=== PATIENT | male | born 1950 | race Caucasian/White ===

== ENCOUNTER 2017-10-05 13:44 | Emergency (ER) | payer OTHER ==
[2017-10-05 14:23] LABS: BASOPHILS % (AUTO) 0.8 %; EOSINOPHILS % (AUTO) 0.8 %; HGB - HEMOGLOBIN 15.8 g/dL (14.0-18.0); LYMPHOCYTES # (AUTO) 1.3 10^3/uL (1.5-3.5); LYMPHOCYTES % (AUTO) 21.9 %; MEAN CORPUSCULAR HEMOGLOBIN 32.9 pg (27.0-31.0); MEAN CORPUSCULAR HGB CONC 34.6 g/dL (32.0-36.0); MEAN CORPUSCULAR VOLUME 95.3 fL (80.0-94.0); MEAN PLATELET VOLUME 7.6 fL (7.4-11.4); MONOCYTES # (AUTO) 0.8 10^3/uL (0.0-1.0); MONOCYTES % (AUTO) 12.8 %; NEUTROPHILS # (AUTO) 3.9 10^3/uL (1.5-6.6); NEUTROPHILS % (AUTO) 63.7 %; PLT - PLATELET COUNT 195 10^3/uL (130-450); RED BLOOD COUNT 4.79 10^6/uL (4.70-6.10); RED CELL DISTRIBUTION WIDTH 13.2 % (12.0-15.0); WHITE BLOOD COUNT 6.1 x10^3/uL (4.8-10.8)
[2017-10-05 14:43] LABS: ALBUMIN 4.1 g/dL (3.2-5.5); ALBUMIN/GLOBULIN RATIO 1.5 (1.0-2.2); CALCIUM 9.1 mg/dL (8.5-10.3); CREATININE 1.2 mg/dL (0.6-1.2); TOTAL PROTEIN 6.9 g/dL (6.7-8.2)
--- NOTE | 2017-10-05 15:09 | ED Physician Documentation ---
History of Present Illness - Stated complaint Stated Complaint: DIZZY/IRREG HEART BEAT - Chief complaint Chief Complaint: Cardiac - History obtained from History obtained from: Patient, Family - History of Present Illness Timing: Today Pain level max: 0 Pain level now: 0 Improved by: nothing Worsened by: nothing - Additonal information Additional information: Patient is a 67 year old male who felt "lightheaded" while driving today. states she felt his pulse and it was irregular. Now feels normal. No chest pain. No shortness of breath. No palpitations. No syncope. Started on HCTZ 1 month ago for HTN. Has had panic attacks in the past and states this felt similar. No history of Afib. Entire episode lasted a few minutes. Review of Systems Ten Systems: 10 systems reviewed and negative Constitutional: denies: Fever, Chills Ears: denies: Ear pain Nose: denies: Rhinorrhea / runny nose, Congestion Respiratory: denies: Cough GI: denies: Nausea, Vomiting, Diarrhea Skin: denies: Rash Musculoskeletal: denies: Neck pain, Back pain Neurologic: denies: Headache PD PAST MEDICAL HISTORY - Past Medical History Past Medical History: Yes Cardiovascular: Hypertension Respiratory: None Endocrine/Autoimmune: None GI: None : None HEENT: None Psych: Post traumatic stress disorder Musculoskeletal: None Derm: None - Past Surgical History Past Surgical History: Yes General: Appendectomy Ortho: Arthroscopic surgery - Present Medications Home Medications: Ambulatory Orders Medication Instructions Recorded Confirmed Lorazepam [Ativan] 1 mg PO PRN PRN 07/01/15 04/29/16 Diclofenac Sodium [Diclofenac 100 mg PO 10/05/17 Sodium ER] Multivitamin [Multivitamins] 1 each PO 10/05/17 hydroCHLOROthiazide 10/05/17 [Hydrochlorothiazide] - Allergies Allergies/Adverse Reactions: Allergies Allergy/AdvReac Type Severity Reaction Status Date / Time No Known Drug Allergies Allergy Verified 10/05/17 13:56 - Social History Does the pt smoke?: No Smoking Status: Never smoker Does the pt drink ETOH?: Yes Does the pt have substance abuse?: No - Immunizations Immunizations are current?: Yes - POLST Patient has POLST: No PD ED PE NORMAL - Vitals Vital signs reviewed: Yes - General General: Alert and oriented X 3, No acute distress - HEENT HEENT: Moist mucous membranes - Neck Neck: Supple, no meningeal sign - Cardiac Cardiac: RRR, No murmur, Strong equal pulses - Respiratory Respiratory: No respiratory distress, Clear bilaterally - Abdomen Abdomen: Soft, Non tender, Non distended - Back Back: No spinal TTP - Derm Derm: Warm and dry - Extremities Extremities: No edema, Other - Neuro Neuro: Alert and oriented X 3 Results - Vitals Vitals: Vital Signs - 24 hr 10/05/17 10/05/17 13:54 15:48 Temperature 36.0 C L Heart Rate 84 82 Respiratory 17 18 Rate Blood Pressure 165/101 H 145/88 H O2 Saturation 99 96 Oxygen O2 Source Room air - EKG (time done) 1359 Rate: Rate (enter#) (82) Rhythm: NSR [place]: Normal Intervals: Normal [place] QRS: Normal Ischemia: Normal ST segments - Labs Labs: Laboratory Tests 10/05/17 10/05/17 10/05/17 14:08 14:08 14:08 WBC 6.1 RBC 4.79 Hgb 15.8 Hct 45.6 MCV 95.3 H MCH 32.9 H MCHC 34.6 RDW 13.2 Plt Count 195 MPV 7.6 Neut # 3.9 Lymph # 1.3 L [place] # 0.8 Eos # 0.0 Baso # 0.0 Absolute Nucleated RBC 0.00 Nucleated RBC % 0.0 Sodium 134 L Potassium 3.6 Chloride 98 L Carbon Dioxide 28 Anion Gap 8.0 BUN 18 Creatinine 1.2 Estimated GFR (MDRD) 61 L Glucose 96 Calcium 9.1 Total Bilirubin 1.0 AST 50 H ALT 52 Alkaline Phosphatase 72 Troponin I < 0.04 Total Protein 6.9 Albumin 4.1 Globulin 2.8 Albumin/Globulin Ratio 1.5 Lipase 50 - Rads (name of study) cxr Radiology: Prelim report reviewed, EMP read contemporaneously, See rad report ( normal) PD MEDICAL DECISION MAKING - ED course Complexity details: reviewed results, re-evaluated patient, considered differential, d/w patient, d/w family ED course: Patient is a 67-year-old gentleman who presents today with palpitations and lightheadedness. Irregular heartbeat while driving. This is happened to him several times in the past with no cause found. Has spent time in the hospital as well. Has an appointment with his doctor on Friday. No acute findings on laboratory testing, chest x-ray or EKG. No arrhythmias on telemetry, but does have occasional premature ventricular contractions. We will have him follow-up with his doctor for further care. No syncope today. Patient and family counseled regarding signs and symptoms for which I believe and urgent re- evaluation would be necessary. Patient with good understanding of and agreement to plan and is comfortable going home at this time This document was made in part using voice recognition software. While efforts are made to proofread this document, sound alike and grammatical errors may occur. Departure - Departure Disposition: 01 Home, Self Care Clinical Impression: Lightheaded, Palpitations Condition: Good Instructions: ED Palpitations Follow-Up: Dominick Rojas MD [Physician No Access] - Within 3 Days Comments: Make sure to follow-up with your doctor for further care. It is recommended that you have a Holter monitor or an event recorder to monitor your heartbeat during these episodes so we can evaluate what is going on. He did not have any significant abnormalities on your laboratory testing, EKG or chest x-ray at this time. Return if you worsen. Discharge Date/Time: 10/05/17 15:48
--- NOTE | 2017-10-05 15:32 | XRAY Report ---
EXAM: CHEST RADIOGRAPHY EXAM DATE: 10/05/2017 03:04 PM. CLINICAL HISTORY: Irregular heart rate, dizzy. COMPARISON: 04/29/2016. TECHNIQUE: 2 views. FINDINGS: Lungs/Pleura: No focal opacities evident. No pleural effusion. No pneumothorax. Normal volumes. Mediastinum: Heart and mediastinal contours are unremarkable. Other: No acute osseous abnormality. There are mild degenerative disk changes of the thoracic spine. IMPRESSION: No acute cardiopulmonary abnormality. [facility] Referring Provider Line: [phone] SITE ID: [id number]
[2017-10-05 15:48] VITALS: BP 145/88
== END 2017-10-05 15:48 | disposition home or self-care (01) ==
LOC: ED 13:44
DX: R42 Dizziness and giddiness (principal); I49.3 Ventricular premature depolarization; I10 Essential (primary) hypertension
CPT/HCPCS: 36415; 71046; 80053; 83690; 84484; 85025; 93005; 99283; 99284

== ENCOUNTER 2017-12-29 09:03 | Outpatient (CLI) | payer OTHER ==
[2017-12-29 10:02] LABS: BUN - BLOOD UREA NITROGEN 16 mg/dL (6-20); CALCIUM 8.7 mg/dL (8.5-10.3); CARBON DIOXIDE - CO2 25 mmol/L (21-32); CHLORIDE 104 mmol/L (101-111); CHOL/HDL RATIO 4.1 (<5.0); CHOLESTEROL 266 mg/dL; CREATININE 0.9 mg/dL (0.6-1.2); GFR - MDRD 84 (>89); GLUCOSE 117 mg/dL (70-100); HDL CHOLESTEROL 65 mg/dL; LDL CHOLESTEROL,CALCULATED 172 mg/dL; LDL/HDL RATIO 2.6 (<3.6); SODIUM 138 mmol/L (135-145); VLDL CHOLESTEROL 29 mg/dL
[2017-12-30 13:03] LABS: HEPATITIS C ANTIBODY NON-REACTIVE (NON-REACTIVE)
== END 2017-12-29 09:04 | disposition home or self-care (01) ==
LOC: LAB 09:03
PROVIDERS: ATTEND Nurse Practitioner Family
DX: Z00.00 Encounter for general adult medical examination without abnormal findings (principal); Z13.220 Encounter for screening for lipoid disorders; N52.9 Male erectile dysfunction, unspecified; I10 Essential (primary) hypertension
CPT/HCPCS: 36415; 80048; 80061; 83721; 84443; 86803

== ENCOUNTER 2019-05-27 09:51 | Outpatient (CLI) | payer MEDICARE ==
[2019-05-27 10:57] LABS: CHOL/HDL RATIO 2.6 (<5.0); CHOLESTEROL 195 mg/dL; HDL CHOLESTEROL 74 mg/dL; LDL CHOLESTEROL,CALCULATED 97 mg/dL; LDL/HDL RATIO 1.3 (<3.6); VLDL CHOLESTEROL 24 mg/dL
[2019-05-27 10:59] LABS: HB2 TOTAL 15.7 g/dL; HEMOGLOBIN A1C 0.59 g/dL; HEMOGLOBIN A1C % 5.6 % (4.6-6.2)
== END 2019-05-27 09:52 | disposition home or self-care (01) ==
LOC: LAB 09:51
PROVIDERS: ATTEND Nurse Practitioner Family
DX: E78.5 Hyperlipidemia, unspecified (principal); R73.01 Impaired fasting glucose
CPT/HCPCS: 36415; 80061; 83036; 83721

== ENCOUNTER 2019-12-31 13:37 | Outpatient (CLI) | payer MEDICARE | END 2019-12-31 13:38 | disposition home or self-care (01) | LOC: COV 13:37 | PROVIDERS: ATTEND Ophthalmology | DX: Z01.818 Encounter for other preprocedural examination (principal); H25.12 Age-related nuclear cataract, left eye; Z20.828 Contact with and (suspected) exposure to other viral communicable diseases ==

== ENCOUNTER 2020-01-06 06:45 | Day surgery (SDC) | payer MEDICARE ==
[~2020-01-06 06:45] MED LIST: CYCLOPENTOLATE 1% OPHTH DROPS 2 ML ONE; KETOROLAC 0.45% OPHTH DROPS ONE; PHENYLEPHRINE 2.5% OPHTH 2 ML DROPS ONE; PROPARACAINE 0.5% OPHTH DROPS 15 ML ONE
[2020-01-06] MEDS ORDERED: LACTATED RINGERS 500 ML IV ONE ×2 (06:47→08:15)
[2020-01-06] MEDS ORDERED: LACTATED RINGERS 1,000 ML IV ONE (06:47)
--- NOTE | 2020-01-06 07:25 | ANESTHESIA ---
Pre-Anesthesia VS, & Labs - Diagnosis L nuclear sclerotic cataract - Procedure extraction L cataract w/IOL Vital Signs: Temp Pulse Resp BP Pulse Ox 36.5 C 70 12 155/84 H 97 01/06/20 06:48 01/06/20 06:48 01/06/20 06:48 01/06/20 06:48 01/06/20 06:48 Height 5 ft 9 in Weight (kg) 87.4 kg Body Mass Index 29.5 - NPO >8 hours Home Medications and Allergies Home Medications: Ambulatory Orders Atorvastatin [Lipitor] 10 mg PO DAILY 01/03/20 Cholecalciferol [Vitamin D3] 25 mcg PO DAILY 01/03/20 Fluticasone [Flonase] 1 sprays CHARISSA DAILY 01/03/20 Glucos Sul 2Kcl/MSM/Chond/C/Mn [Glucosamine Chondroitin Cap] 1 each PO DAILY 01/03/20 Losartan/Hydrochlorothiazide [Losartan-Hctz 50-12.5 mg Tab] 1 each PO DAILY 01/03/20 Omeprazole 20 mg PO ONCE PRN 01/03/20 Oxymetazoline HCl [Afrin] 1 spray NS PRN PRN 01/03/20 Prazosin [Minipress] 1 mg PO QPM 01/03/20 Lorazepam [Ativan] 1 mg PO PRN PRN 07/01/15 Diclofenac Sodium [Diclofenac Sodium ER] 50 mg PO DAILY 10/05/17 Multivitamin [Multivitamins] 1 each PO DAILY 10/05/17 Atorvastatin [Lipitor] 10 mg PO DAILY 01/03/20 Cholecalciferol [Vitamin D3] 25 mcg PO DAILY 01/03/20 Fluticasone [Flonase] 1 sprays CHARISSA DAILY 01/03/20 Glucos Sul 2Kcl/MSM/Chond/C/Mn [Glucosamine Chondroitin Cap] 1 each PO DAILY 01/03/20 Losartan/Hydrochlorothiazide [Losartan-Hctz 50-12.5 mg Tab] 1 each PO DAILY 01/03/20 Omeprazole 20 mg PO ONCE PRN 01/03/20 Oxymetazoline HCl [Afrin] 1 spray NS PRN PRN 01/03/20 Prazosin [Minipress] 1 mg PO QPM 01/03/20 Allergies/Adverse Reactions: Allergies Allergy/AdvReac Type Severity Reaction Status Date / Time No Known Drug Allergies Allergy Verified 10/05/17 13:56 Anes History & Medical History - Anesthetic History Anesthesia Complications: reports: No previous complications Family history of Anesthesia Complications: Denies Family history of Malignant Hyperthermia: Denies - Medical History Cardiovascular: reports: Hypertension, High cholesterol Pulmonary: reports: None Gastrointestinal: reports: GERD, Ulcers Urinary: reports: Kidney stones Musculoskeletal: reports: Osteoarthritis Endocrine/Autoimmune: reports: None Blood Disorders: reports: None Skin: reports: Rosacea Smoking Status: Never smoker - Surgical History General: Appendectomy, Colonoscopy Urologic: Ureterolithotomy (stones) Orthopedic: Arthroscopic surgery Exam General: Alert, Oriented x3, Cooperative Dental: WNL Mouth Opening: Greater than 4 Fingerbreadths Neck Mobility: Normal Mallampati classification: II Thyromental Distance: greater than 6 cm Respiratory: Lungs clear, Normal breath sounds, No respiratory distress Cardiovascular: Regular rate Mental/Cognitive Status: Alert/Oriented X3, Normal for patient Cognitive Status: Within normal limits Plan Anesthesia Type: MAC Consent for Procedure(s) Verified and Reviewed: Yes Code Status: Attempt Resuscitation ASA classification: 2-Mild systemic disease Is this case an emergency?: No
[2020-01-06] MEDS ORDERED: fentaNYL 100 MCG/2 ML VIAL IVP PRN (07:26)
[2020-01-06] MEDS ORDERED: ONDANSETRON 4 MG/2 ML VIAL IVP PRN (07:26)
[2020-01-06] MEDS ORDERED: ePHEDrine 50 MG/ML VIAL IVP PRN (07:26)
[2020-01-06] MEDS ORDERED: NALOXONE 0.4 MG/ML VIAL IVP PRN (07:26)
[2020-01-06] MEDS ORDERED: METOCLOPRAMIDE 10 MG/2 ML VIAL IVP PRN (07:26)
[2020-01-06] MEDS ORDERED: MORPHINE 2 MG/ML CARPUJECT IVP PRN (07:26)
[2020-01-06] MEDS ORDERED: ATROPINE ABBOJECT 1 MG/10 ML SYRINGE IVP PRN (07:26)
[2020-01-06] MEDS ORDERED: HYDROmorphone 0.5 MG/0.5 ML SYRINGE IVP PRN (07:26)
[2020-01-06] MEDS ORDERED: VANCOMYCIN OPHTHALMI 8MG/0.8ML 8 MG/0.8 ML SYRINGE IO ONE ×2 (07:55→08:02)
[2020-01-06] MEDS ORDERED: TRIAMCIN/MOXIFLOX OPHTHALMIC 0.6 ML VIAL IO ONE ×2 (07:55→08:02)
[2020-01-06] MEDS ORDERED: BSS/LIDOCAINE/EPINEPHRINE 1 ML SYRINGE ONE (07:55)
[2020-01-06] MEDS ORDERED: EPINEPHrine 1 MG/ML AMP ONE (07:55)
[2020-01-06] MEDS ORDERED: TIMOLOL 0.5% OPHTH DROPS ONE (07:55)
[2020-01-06] MEDS ORDERED: BRIMONIDINE 0.2% OPHTH DROPS 5 ML ONE (07:55)
[2020-01-06] MEDS ORDERED: fentaNYL 100 MCG/2 ML VIAL IVP ONE (07:57)
[2020-01-06] MEDS ORDERED: MIDAZOLAM 2 MG/2 ML VIAL IVP ONE (07:57)
[2020-01-06] MEDS ORDERED: CHONDR SULF/HYALURONATE SYRINGE IO ONE (08:00)
[2020-01-06] MEDS ORDERED: EPINEPHrine 1 MG/ML AMP IR ONE (08:00)
[2020-01-06] MEDS ORDERED: TIMOLOL 0.5% OPHTH DROPS OPTH ONE (08:00)
[2020-01-06] MEDS ORDERED: LACTATED RINGERS 1,000 ML IV SCH (08:00)
[2020-01-06] MEDS ORDERED: BRIMONIDINE 0.2% OPHTH DROPS 5 ML OPTH ONE (08:00)
[2020-01-06] MEDS ORDERED: BSS/LIDOCAINE/EPINEPHRINE 1 ML SYRINGE IO ONE (08:01)
[2020-01-06] MEDS ORDERED: PROPARACAINE 0.5% OPHTH DROPS 15 ML EACHEYE ONE (08:02)
--- NOTE | 2020-01-06 08:30 | ANESTHESIA POST OP EVALUATION ---
Anesthesia Post Eval - Post Anesthesia Eval Vitals: Last Vital Signs Temp 36.7 C 01/06/20 08:15 Pulse 83 01/06/20 08:15 Resp 14 01/06/20 08:15 BP 126/98 H 01/06/20 08:15 Pulse Ox 98 01/06/20 08:15 CV Function Including HR & BP: positive: Stable Pain Control: positive: Satisfactory Nausea & Vomiting: positive: Negative Mental Status: positive: Baseline Respiratory Status: Airway Patent Hydration Status: Satisfactory Anesthesia Complications: positive: None
[2020-01-06 08:33] VITALS: BP 129/87
--- NOTE | 2020-01-06 09:33 | OPERATIVE REPORT ---
DATE OF SERVICE: 01/06/2020 Physician: Aidan Pascal MD PREOPERATIVE DIAGNOSIS: Visually significant cataract, left eye. This was his first cataract surger y. POSTOPERATIVE DIAGNOSIS: Visually significant cataract, left eye. This was his first cataract surge ry. PROCEDURE: Phacoemulsification with posterior chamber intraocular lens implant, left eye. SURGEON: Aidan Pascal MD ANESTHESIA: Monitored anesthesia care. COMPLICATIONS: None. OPERATIVE INDICATIONS: This is a 69-year-old man with progressive vision loss in the left eye due to 4+ nuclear sclerotic and 1+ cortical cataract. Best corrected visual acuity was 20/30, with glare t o 20/100 in the left eye. Indications for surgery were overall decrease in vision; difficulty seeing words, closed caption or game scores on TV; difficulty seeing street signs, difficulty driving in lo w light or at night, difficulty driving at night because of headlights from other vehicles, and diffi culty with glare or bright lights in any situation. He was consented at length concerning risks and benefits of cataract surgery, after which he expressed a desire to proceed with surgery. OPERATIVE PROCEDURE: Patient was taken into OR #3 and placed under monitored anesthesia care. A jose luis gical timeout was conducted confirming correct patient, correct procedure, and correct surgical site. He was given topical anesthesia, and then prepped and draped in the usual sterile fashion. The eye was entered at the 6 and 3 o'clock positions. Intracameral Shugarcaine was injected into the anteri or chamber, followed by Viscoat. A continuous-tear curvilinear capsulorrhexis was performed. The nu cleus was hydrodissected and phacoemulsified. The cortex was evacuated using automated infusion and aspiration. Provisc was injected in the capsular bag, and a 15.5 diopter intraocular lens was insert ed into the bag. Infusion and aspiration were used to evacuate the viscoelastic materials. The eye was inflated to physiologic pressure using balanced salt solution and found to be watertight. Approx imately 0.25 mL of a mixture of triamcinolone and moxifloxacin was injected transsclerally into the v itreous in the inferotemporal quadrant. An additional 0.55 mL of a mixture of triamcinolone, moxiflo xacin and vancomycin was injected subconjunctivally in the superior quadrant for infection and inflam mation prophylaxis. Wound integrity was checked with Weck-Mariposa sponges. Patient was taken from the O perating Room in good condition and given postoperative instructions. TD: 01/06/2020 08:24
== END 2020-01-06 06:46 | disposition home or self-care (01) ==
LOC: SDS 06:45
PROVIDERS: ATTEND Ophthalmology
DX: H25.12 Age-related nuclear cataract, left eye (principal); I10 Essential (primary) hypertension; E78.00 Pure hypercholesterolemia, unspecified; F43.10 Post-traumatic stress disorder, unspecified
CPT/HCPCS: 66984; A9270; J3490; J7120; V2632

== ENCOUNTER 2020-01-31 08:00 | Outpatient (CLI) | payer MEDICARE | END 2020-01-31 23:59 | disposition home or self-care (01) | LOC: COV 08:00 | PROVIDERS: ATTEND Ophthalmology | DX: Z01.818 Encounter for other preprocedural examination (principal); H25.11 Age-related nuclear cataract, right eye; Z20.828 Contact with and (suspected) exposure to other viral communicable diseases ==

== ENCOUNTER 2020-02-03 08:24 | Day surgery (SDC) | payer MEDICARE ==
[2020-02-03] MEDS ORDERED: LACTATED RINGERS 500 ML IV ONE (08:45)
--- NOTE | 2020-02-03 09:19 | ANESTHESIA ---
Pre-Anesthesia VS, & Labs - Diagnosis Right eye cataract - Procedure right eye cataract extraction with IOL implant Vital Signs: Temp Pulse Resp BP Pulse Ox 36.5 C 73 18 139/90 H 99 02/03/20 08:59 02/03/20 08:59 02/03/20 08:59 02/03/20 08:59 02/03/20 08:59 Height: 5 ft 9 in Weight (kg): 87.4 kg Body Mass Index: 28.4 BMI Classification: Overweight - NPO >8 hours Last Fluid Intake: 4 oz of black coffee Home Medications and Allergies Lorazepam [Ativan] 1 mg PO PRN PRN 07/01/15 Diclofenac Sodium [Diclofenac Sodium ER] 50 mg PO DAILY 10/05/17 Multivitamin [Multivitamins] 1 each PO DAILY 10/05/17 Atorvastatin [Lipitor] 10 mg PO DAILY 01/03/20 Cholecalciferol [Vitamin D3] 25 mcg PO DAILY 01/03/20 Fluticasone [Flonase] 1 sprays CHARISSA DAILY 01/03/20 Glucos Sul 2Kcl/MSM/Chond/C/Mn [Glucosamine Chondroitin Cap] 1 each PO DAILY 01/03/20 Losartan/Hydrochlorothiazide [Losartan-Hctz 50-12.5 mg Tab] 1 each PO DAILY 01/03/20 Omeprazole 20 mg PO ONCE PRN 01/03/20 Oxymetazoline HCl [Afrin] 1 spray NS PRN PRN 01/03/20 Prazosin [Minipress] 1 mg PO QPM 01/03/20 Allergies/Adverse Reactions: Allergies Allergy/AdvReac Type Severity Reaction Status Date / Time No Known Drug Allergies Allergy Verified 10/05/17 13:56 Anes History & Medical History - Anesthetic History Anesthesia Complications: reports: No previous complications - Medical History Cardiovascular: reports: Hypertension, High cholesterol Pulmonary: reports: None Gastrointestinal: reports: GERD, Ulcers Urinary: reports: Kidney stones Neuro: reports: None Musculoskeletal: reports: Osteoarthritis Endocrine/Autoimmune: reports: None Blood Disorders: reports: None Skin: reports: Rosacea Smoking Status: Never smoker Psychosocial: reports: No issues indicated - Surgical History General: Appendectomy, Colonoscopy Urologic: Ureterolithotomy (stones) Orthopedic: Arthroscopic surgery Exam General: Alert, Oriented x3, Cooperative, No acute distress Dental: WNL Mouth Openin Fingerbreadth Neck Mobility: Normal Mallampati classification: II Thyromental Distance: 4-6 cm Respiratory: Lungs clear, Normal breath sounds, No respiratory distress, No accessory muscle use Cardiovascular: Regular rate, Normal S1, Normal S2, No murmurs Mental/Cognitive Status: Alert/Oriented X3, Normal for patient Plan Anesthesia Type: MAC Consent for Procedure(s) Verified and Reviewed: Yes Code Status: Attempt Resuscitation ASA classification: 2-Mild systemic disease Is this case an emergency?: No
[2020-02-03] MEDS ORDERED: TRIAMCIN/MOXIFLOX OPHTHALMIC 0.6 ML VIAL IO ONE ×2 (10:04→10:24)
[2020-02-03] MEDS ORDERED: VANCOMYCIN OPHTHALMI 8MG/0.8ML 8 MG/0.8 ML SYRINGE IO ONE ×2 (10:05→10:25)
[2020-02-03] MEDS ORDERED: BRIMONIDINE 0.2% OPHTH DROPS 5 ML ONE (10:05)
[2020-02-03] MEDS ORDERED: TIMOLOL 0.5% OPHTH DROPS ONE (10:05)
[2020-02-03] MEDS ORDERED: EPINEPHrine 1 MG/ML AMP ONE (10:05)
[2020-02-03] MEDS ORDERED: BSS/LIDOCAINE/EPINEPHRINE 1 ML SYRINGE ONE (10:05)
[2020-02-03] MEDS ORDERED: fentaNYL 100 MCG/2 ML VIAL IVP ONE (10:12)
[2020-02-03] MEDS ORDERED: MIDAZOLAM 2 MG/2 ML VIAL IVP ONE (10:12)
[2020-02-03] MEDS ORDERED: PROPARACAINE 0.5% OPHTH DROPS 15 ML EACHEYE ONE (10:18)
[2020-02-03] MEDS ORDERED: BRIMONIDINE 0.2% OPHTH DROPS 5 ML OPTH ONE (10:21)
[2020-02-03] MEDS ORDERED: EPINEPHrine 1 MG/ML AMP IR ONE (10:22)
[2020-02-03] MEDS ORDERED: CHONDR SULF/HYALURONATE SYRINGE IO ONE (10:22)
[2020-02-03] MEDS ORDERED: TIMOLOL 0.5% OPHTH DROPS OPTH ONE (10:23)
[2020-02-03] MEDS ORDERED: BSS/LIDOCAINE/EPINEPHRINE 1 ML SYRINGE IO ONE (10:23)
[2020-02-03] MEDS ORDERED: DEXTROSE 5% 300 ML IV ONE (10:32)
[2020-02-03 10:57] VITALS: BP 143/86
--- NOTE | 2020-02-03 12:48 | OPERATIVE REPORT ---
DATE OF SERVICE: 02/03/2020 Physician: Aidan Pascal MD PREOPERATIVE DIAGNOSIS: Visually significant cataract, right eye. Cataract surgery was performed on the left eye on . POSTOPERATIVE DIAGNOSIS: Visually significant cataract, right eye. Cataract surgery was performed o n the left eye on 01/06/2020. PROCEDURE: Phacoemulsification with posterior chamber intraocular lens implant, right eye. SURGEON: Aidan Pascal MD ANESTHESIA: Monitored anesthesia care. COMPLICATIONS: None. OPERATIVE INDICATIONS: This is a 69-year-old man with progressive vision loss in the right eye due t o 2+ nuclear sclerotic and trace cortical cataract. Best corrected visual acuity was 20/20, with gla re to 20/40 in the right eye. Indications for surgery are overall decrease in vision, difficulty see ing street signs, difficulty driving in low light or at night, difficulty driving at night because of headlights from other vehicles, difficulty with glare or bright lights in any situation, and decreas ed acuity with firearms. He was consented at length concerning risks and benefits of cataract surger y, after which he expressed a desire to proceed with surgery. OPERATIVE PROCEDURE: Patient was taken to OR #3 and placed under monitored anesthesia care. Surgica l timeout was conducted confirming correct patient, correct procedure, and correct surgical site. He was given topical anesthesia, and prepped and draped in the usual sterile fashion. The eye was ente red at the 12, and 9 o'clock positions. Intracameral Shugarcaine was injected into the anterior dexter alyson, followed by Viscoat. A continuous-tear curvilinear capsulorrhexis was performed. The nucleus w as hydrodissected and phacoemulsified. The cortex was evacuated using automated infusion and aspirat ion. Provisc was injected in the capsular bag, and a 16.0 diopter intraocular lens was inserted into the bag. Infusion and aspiration was used to evacuate the viscoelastic materials. The eye was infl ated to physiologic pressure using balanced salt solution and found to be watertight. Approximately 0.25 mL of a mixture of triamcinolone and moxifloxacin was injected transsclerally into the vitreous in the inferotemporal quadrant. An additional 0.55 mL of a mixture of triamcinolone, moxifloxacin an d vancomycin was injected subconjunctivally in the superior quadrant for infection and inflammation p rophylaxis. Wound integrity was checked with Weck-Mariposa sponges. Patient was taken from the Operating Room in good condition and given postoperative instructions. TD: 02/03/2020 10:43
--- NOTE | 2020-02-03 13:27 | ANESTHESIA POST OP EVALUATION ---
Anesthesia Post Eval - Post Anesthesia Eval Vitals: Last Vital Signs Temp 36.9 C 02/03/20 10:33 Pulse 76 02/03/20 10:50 Resp 18 02/03/20 10:50 BP 143/86 H 02/03/20 10:50 Pulse Ox 97 02/03/20 10:50 CV Function Including HR & BP: positive: Stable Pain Control: positive: Satisfactory Nausea & Vomiting: positive: Negative Mental Status: positive: Patient Participates Respiratory Status: Airway Patent Hydration Status: Satisfactory Anesthesia Complications: positive: None
== END 2020-02-03 08:25 | disposition home or self-care (01) ==
LOC: SDS 08:24
PROVIDERS: ATTEND Ophthalmology
DX: H25.11 Age-related nuclear cataract, right eye (principal); I10 Essential (primary) hypertension; Z98.42 Cataract extraction status, left eye
CPT/HCPCS: 66984; A9270; J3490; J7120; V2632

== ENCOUNTER 2020-03-06 15:20 | Outpatient (CLI) | payer MEDICARE | END 2020-03-06 15:21 | disposition home or self-care (01) | LOC: COV 15:20 | PROVIDERS: ATTEND Family Medicine | DX: Z20.828 Contact with and (suspected) exposure to other viral communicable diseases (principal) ==

== ENCOUNTER 2020-04-17 08:44 | Outpatient (CLI) | payer MEDICARE ==
[2020-04-17 09:25] LABS: ALBUMIN 3.9 g/dL (3.2-5.5); ALBUMIN/GLOBULIN RATIO 1.4 (1.0-2.2); ALKALINE PHOSPHATASE 64 IU/L (42-121); ALT ALANINE AMINOTRANSFERASE 38 IU/L (10-60); AST ASPARTATE AMINOTRANSFERASE 36 IU/L (10-42); BUN - BLOOD UREA NITROGEN 13 mg/dL (6-20); CALCIUM 8.8 mg/dL (8.5-10.3); CARBON DIOXIDE - CO2 26 mmol/L (21-32); CHLORIDE 101 mmol/L (101-111); CHOL/HDL RATIO 2.7 (<5.0); CHOLESTEROL 204 mg/dL; CREATININE 0.9 mg/dL (0.6-1.2); GLUCOSE 100 mg/dL (70-100); HDL CHOLESTEROL 75 mg/dL; LDL CHOLESTEROL,CALCULATED 94 mg/dL; LDL/HDL RATIO 1.3 (<3.6); SODIUM 139 mmol/L (135-145); TOTAL PROTEIN 6.6 g/dL (6.7-8.2); VLDL CHOLESTEROL 35 mg/dL
== END 2020-04-17 08:45 | disposition home or self-care (01) ==
LOC: LAB 08:44
PROVIDERS: ATTEND Nurse Practitioner Family
DX: I10 Essential (primary) hypertension (principal); E78.5 Hyperlipidemia, unspecified
CPT/HCPCS: 36415; 80053; 80061; 83721

== ENCOUNTER 2020-09-01 15:59 | Emergency (ER) | payer MEDICARE, OTHER ==
--- OUTSIDE RECORDS SUMMARY | 2020-09-01 16:12 | EXTERNAL MEDICAL SUMMARY RPT | Continuity of Care Document ---
:1950 Demographics Phone Unavailable Preferred Language Unknown Marital Status Unknown Uatsdin Affiliation Unknown Race Unknown Ethnic Group Unknown Author Organization [facility] Address [address] [phone] Phone Social History date description facility [phone]
[2020-09-01] MEDS ORDERED: DEXAMETHASONE 10 MG/ML VIAL IM STA (16:29)
--- NOTE | 2020-09-01 16:31 | ED Physician Documentation ---
PD HPI UPPER EXT INJURY - Stated complaint Stated Complaint: LT ARM PX - Chief complaint Chief Complaint: Ext Problem - History obtained from History obtained from: Patient - Additonal information Additional information: This is a generally pretty healthy 70-year-old gentleman who after heavy day of yard work developed gradual onset left arm pain 4 days ago. He was seen at urgent care and given prescription for hydrocodone and diagnosed with lateral epicondylitis. He does not really like taking hydrocodone and really has not taken much. His pain is gotten worse and is now "worse than the kidney stone which she has had before." He denies chest pain, neck pain. He does note numbness in the left hand which seems to be worsening as well. There was no specific injury, no fall etc. He is never had this before. Review of Systems Ten Systems: 10 systems reviewed and negative Constitutional: reports: Reviewed and negative Eyes: reports: Reviewed and negative Ears: reports: Reviewed and negative Throat: reports: Reviewed and negative PD PAST MEDICAL HISTORY - Past Medical History Cardiovascular: Hypertension Respiratory: None Neuro: None Endocrine/Autoimmune: None GI: None : None HEENT: None Psych: Post traumatic stress disorder Musculoskeletal: None Derm: None - Past Surgical History Past Surgical History: Yes General: Appendectomy Ortho: Arthroscopic surgery - Present Medications Home Medications: Ambulatory Orders Medication Instructions Recorded Confirmed Lorazepam [Ativan] 1 mg PO PRN PRN 07/01/15 09/01/20 Diclofenac Sodium [Diclofenac 50 mg PO DAILY 10/05/17 09/01/20 Sodium ER] Multivitamin [Multivitamins] 1 each PO DAILY 10/05/17 09/01/20 Atorvastatin [Lipitor] 10 mg PO DAILY 01/03/20 09/01/20 Cholecalciferol [Vitamin D3] 25 mcg PO DAILY 01/03/20 09/01/20 Fluticasone [Flonase] 1 sprays CHARISSA DAILY 01/03/20 09/01/20 Glucos Sul 2Kcl/MSM/Chond/C/Mn 1 each PO DAILY 01/03/20 09/01/20 [Glucosamine Chondroitin Cap] Losartan/Hydrochlorothiazide 1 each PO DAILY 01/03/20 09/01/20 [Losartan-Hctz 50-12.5 mg Tab] Omeprazole 20 mg PO ONCE PRN 01/03/20 09/01/20 Oxymetazoline HCl [Afrin] 1 spray NS PRN PRN 01/03/20 09/01/20 Prazosin [Minipress] 1 mg PO QPM 01/03/20 09/01/20 predniSONE [Deltasone] 20 mg PO [id number] #21 tab 09/01/20 - Allergies Allergies/Adverse Reactions: Allergies Allergy/AdvReac Type Severity Reaction Status Date / Time No Known Drug Allergies Allergy Verified 09/01/20 16:17 - Social History Does the pt smoke?: No Smoking Status: Never smoker Does the pt drink ETOH?: Yes Does the pt have substance abuse?: No - Immunizations Immunizations are current?: Yes - POLST Patient has POLST: No PD ED PE NORMAL - Vitals Vital signs reviewed: Yes - General General: Alert and oriented X 3, No acute distress - HEENT HEENT: PERRL, EOMI - Neck Neck: Supple, no meningeal sign, No bony TTP - Cardiac Cardiac: RRR, No murmur - Respiratory Respiratory: No respiratory distress, Clear bilaterally - Abdomen Abdomen: Normal bowel sounds, Soft, Non tender - Back Back: No CVA TTP, No spinal TTP - Derm Derm: Normal color, Warm and dry - Extremities Extremities: Other (Excellent perfusion of the left hand with bounding radial pulses. Mild numbness throughout the left hand not particularly in a dermatomal pattern. Kind of diffusely tender about the proximal forearm and elbow. More on the medial side I think than the lateral side. No neck tenderness. ) - Neuro Neuro: Alert and oriented X 3, Normal speech Results - Vitals Vitals: Vital Signs - 24 hr 09/01/20 16:11 Temperature 36.8 C Heart Rate 93 Respiratory 16 Rate Blood Pressure 163/81 H O2 Saturation 95 Oxygen O2 Source Room air - EKG (time done) 1637 Rate: Rate (enter#) (90) Rhythm: NSR [place]: Normal Intervals: Normal [place] QRS: Normal Ischemia: Non specific changes Computer interpretation: Agree with computer - Labs Labs: Laboratory Tests 09/01/20 09/01/20 16:40 16:40 WBC 6.5 RBC 4.85 Hgb 15.8 Hct 46.6 MCV 96.1 H MCH 32.6 H MCHC 33.9 RDW 11.9 L Plt Count 229 MPV 8.9 Neut # (Auto) 4.2 Lymph # (Auto) 1.4 L [place] # (Auto) 0.7 Eos # (Auto) 0.1 Baso # (Auto) 0.1 Absolute Nucleated RBC 0.00 Nucleated RBC % 0.0 Sodium 139 Potassium 3.5 Chloride 104 Carbon Dioxide 25 Anion Gap 10.0 BUN 19 Creatinine 0.9 Estimated GFR (MDRD) 84 L Glucose 118 H Calcium 9.4 - Rads (name of study) Xrays of the left elbow, forearm, and cervical spine Radiology: EMP read contemporaneously PD MEDICAL DECISION MAKING - ED course ED course: Gentleman with pain of the left upper extremity associate with numbness of the left upper extremity. He actually had excellent relief with a shot of Decadron here. He like to not take narcotics even though the pain is severe. There is no sign of infection. Could be cervical radiculopathy? Noting numbness in the left hand. No evidence of vascular issue. Departure - Departure Disposition: 01 Home, Self Care Clinical Impression: Pain in extremity Qualifiers: Extremity pain location: upper extremity Laterality: left Qualified Code(s): M79.602 - Pain in left arm Condition: Good Record reviewed to determine appropriate education?: Yes Instructions: ED Acute Pain [facility] Prescriptions: predniSONE [Deltasone] 20 mg PO [id number] #21 tab Comments: As discussed, my best guess is that you have a pinched nerve in your neck, return for new or worsening symptoms and follow-up with your primary care physician. Thankfully we already know the steroids are helping.
[2020-09-01 16:50] LABS: BASOPHILS # (AUTO) 0.1 10^3/uL (0.0-0.1); BASOPHILS % (AUTO) 1.2 %; EOSINOPHILS # (AUTO) 0.1 10^3/uL (0.0-0.7); EOSINOPHILS % (AUTO) 1.5 %; HCT - HEMATOCRIT 46.6 % (42.0-52.0); HGB - HEMOGLOBIN 15.8 g/dL (14.0-18.0); LYMPHOCYTES # (AUTO) 1.4 10^3/uL (1.5-3.5); LYMPHOCYTES % (AUTO) 21.7 %; MEAN CORPUSCULAR HEMOGLOBIN 32.6 pg (27.0-31.0); MEAN CORPUSCULAR HGB CONC 33.9 g/dL (32.0-36.0); MEAN CORPUSCULAR VOLUME 96.1 fL (80.0-94.0); MEAN PLATELET VOLUME 8.9 fL (7.4-11.4); MONOCYTES # (AUTO) 0.7 10^3/uL (0.0-1.0); MONOCYTES % (AUTO) 10.9 %; NEUTROPHILS # (AUTO) 4.2 10^3/uL (1.5-6.6); NEUTROPHILS % (AUTO) 64.5 %; PLT - PLATELET COUNT 229 10^3/uL (130-450); RED BLOOD COUNT 4.85 10^6/uL (4.70-6.10); RED CELL DISTRIBUTION WIDTH 11.9 % (12.0-15.0); WHITE BLOOD COUNT 6.5 x10^3/uL (4.8-10.8)
[2020-09-01 16:59] LABS: CALCIUM 9.4 mg/dL (8.5-10.3); CREATININE 0.9 mg/dL (0.6-1.2); POTASSIUM 3.5 mmol/L (3.5-5.0)
--- NOTE | 2020-09-01 17:19 | XRAY Report ---
PROCEDURE: Cervical Spine 2 View INDICATIONS: arm pain/numb TECHNIQUE: 4 view(s) of the cervical spine were acquired. COMPARISON: None. FINDINGS: Bones: No fractures or dislocations to the C7-T1 level. Degenerative endplate changes and bilateral facet hypertrophic changes are noted throughout cervical spine more prominent at C4-5 and C5-6 levels . The lateral masses of C1 appear intact on the odontoid view. No suspicious bony lesions. Soft tissues: No prevertebral soft tissue swelling. IMPRESSION: Degenerative disc disease throughout cervical spine more prominent in mid to lower cervi everette spine. No acute cervical spine fracture or dislocation. Reviewed by: Andrea Harden MD on 09/01/2020 5:18 PM PDT Approved by: Andrea Harden MD on 09/01/2020 5:18 PM PDT Station ID: [id number]
--- NOTE | 2020-09-01 17:20 | XRAY Report ---
PROCEDURE: Forearm LT INDICATIONS: arm pain TECHNIQUE: 2 views of the forearm were acquired. COMPARISON: None FINDINGS: Bones: No fractures or dislocations. No suspicious bony lesions. Soft tissues: No suspicious soft tissue calcifications or masses. IMPRESSION: No forearm fracture or dislocation. No finding to explain patient's symptoms. Reviewed by: Andrea Harden MD on 09/01/2020 5:19 PM PDT Approved by: Andrea Harden MD on 09/01/2020 5:19 PM PDT Station ID: [id number]
--- NOTE | 2020-09-01 17:21 | XRAY Report ---
PROCEDURE: Elbow 3 View LT INDICATIONS: arm pain TECHNIQUE: 3 views of the elbow were acquired. COMPARISON: None FINDINGS: Bones: No fractures or dislocations. No suspicious bony lesions. Soft tissues: No elbow joint effusion. No suspicious soft tissue calcifications. IMPRESSION: No elbow fracture or dislocation. No joint effusion. No suspicious bony lesion. Reviewed by: Andrea Harden MD on 09/01/2020 5:19 PM PDT Approved by: Andrea Harden MD on 09/01/2020 5:19 PM PDT Station ID: [id number]
[2020-09-01 17:44] VITALS: BP 165/91
== END 2020-09-01 17:53 | disposition home or self-care (01) ==
LOC: ED 15:59
DX: M79.602 Pain in left arm (principal); R20.0 Anesthesia of skin; X50.9XXA Other and unspecified overexertion or strenuous movements or postures, initial encounter; Y93.H9 Activity, other involving exterior property and land maintenance, building and construction; M50.321 Other cervical disc degeneration at C4-C5 level; I10 Essential (primary) hypertension
CPT/HCPCS: 36415; 80048; 85025; 93005; 96372; 99284

== ENCOUNTER 2021-01-18 10:01 | Outpatient (CLI) | payer OTHER ==
--- NOTE | 2021-01-18 13:43 | XRAY Report ---
PROCEDURE: Knee 4 View LT INDICATIONS: OSTEOARTHRITIS TECHNIQUE: 4 views of the left knee(s) were acquired. COMPARISON: None. FINDINGS: Bones: No fractures or dislocations. No suspicious bony lesions. The left knee demonstrates severe lateral and moderate patellofemoral compartment narrowing. Subchondral sclerosis is noted within the medial compartment as well as small areas of subchondral lucency. Periarticular osteophytes are pres ent. The right knee demonstrates moderate medial compartment narrowing. Soft tissues: Mild left joint effusion. No suspicious soft tissue calcifications. IMPRESSION: Severe medial and moderate patellofemoral arthritic change within the left knee as above . Reviewed by: Jacklyn Lester MD on 01/18/2021 1:42 PM PDT Approved by: Jacklyn Lester MD on 01/18/2021 1:42 PM PDT Station ID: [id number]
== END 2021-01-18 10:02 | disposition home or self-care (01) ==
LOC: DI 10:01
PROVIDERS: ATTEND Nurse Practitioner Family
DX: M17.32 Unilateral post-traumatic osteoarthritis, left knee (principal)

== ENCOUNTER 2021-06-27 08:22 | Outpatient (CLI) | payer OTHER ==
[2021-06-27 09:02] LABS: ALBUMIN 4.1 g/dL (3.2-5.5); ALBUMIN/GLOBULIN RATIO 1.5 (1.0-2.2); ALKALINE PHOSPHATASE 74 IU/L (42-121); ALT ALANINE AMINOTRANSFERASE 42 IU/L (10-60); AST ASPARTATE AMINOTRANSFERASE 45 IU/L (10-42); BILIRUBIN,TOTAL 1.1 mg/dL (0.2-1.0); BUN - BLOOD UREA NITROGEN 16 mg/dL (6-20); CALCIUM 9.1 mg/dL (8.5-10.3); CARBON DIOXIDE - CO2 24 mmol/L (21-32); CHLORIDE 101 mmol/L (101-111); CHOL/HDL RATIO 2.7 (<5.0); CHOLESTEROL 208 mg/dL; CREATININE 0.9 mg/dL (0.6-1.2); GFR - MDRD 83 (>89); GLUCOSE 105 mg/dL (70-100); HDL CHOLESTEROL 77 mg/dL; LDL CHOLESTEROL,CALCULATED 116 mg/dL; LDL/HDL RATIO 1.5 (<3.6); SODIUM 138 mmol/L (135-145); TOTAL PROTEIN 6.8 g/dL (6.7-8.2); TRIGLYCERIDES 74 mg/dL; VLDL CHOLESTEROL 15 mg/dL
== END 2021-06-27 08:23 | disposition home or self-care (01) ==
LOC: LAB 08:22
PROVIDERS: ATTEND Nurse Practitioner Family
DX: E78.5 Hyperlipidemia, unspecified (principal); I10 Essential (primary) hypertension; Z12.5 Encounter for screening for malignant neoplasm of prostate
CPT/HCPCS: 36415; 80053; 80061; 83721; 84153

== ENCOUNTER 2021-08-26 12:06 | Emergency (ER) | payer OTHER ==
--- NOTE | 2021-08-26 12:48 | ED Physician Documentation ---
History of Present Illness - Stated complaint Stated Complaint: LT LEG PX/HEAT - Chief complaint Chief Complaint: Ext Problem - History obtained from History obtained from: Patient, Family - History of Present Illness Timing: Today Pain level max: 8 Pain level now: 8 - Additonal information Additional information: 71-year-old male status post a left partial knee replacement 3 days ago at [facility] with Dr. Trey Andrea. He and his are changing his bandages today when he had increased pain and noticed swelling and a warm spot behind the left knee. Worse with movement, better with rest. No fevers. No chills. No shortness of breath. No chest pain. No nausea or vomiting. Review of Systems Constitutional: denies: Fever, Chills Respiratory: denies: Cough GI: denies: Nausea, Vomiting, Diarrhea Skin: denies: Rash Musculoskeletal: denies: Neck pain, Back pain Neurologic: denies: Headache PD PAST MEDICAL HISTORY - Past Medical History Cardiovascular: Hypertension Respiratory: None Neuro: None Endocrine/Autoimmune: None GI: None : None HEENT: None Psych: Post traumatic stress disorder Musculoskeletal: None Derm: None - Past Surgical History Past Surgical History: Yes General: Appendectomy Ortho: Arthroscopic surgery - Present Medications Home Medications: Ambulatory Orders Medication Instructions Recorded Confirmed Lorazepam [Ativan] 1 mg PO PRN PRN 07/01/15 09/01/20 Diclofenac Sodium [Diclofenac 50 mg PO DAILY 10/05/17 09/01/20 Sodium ER] Multivitamin [Multivitamins] 1 each PO DAILY 10/05/17 09/01/20 Atorvastatin [Lipitor] 10 mg PO DAILY 01/03/20 09/01/20 Cholecalciferol [Vitamin D3] 25 mcg PO DAILY 01/03/20 09/01/20 Fluticasone [Flonase] 1 sprays CHARISSA DAILY 01/03/20 09/01/20 Glucos Sul 2Kcl/MSM/Chond/C/Mn 1 each PO DAILY 01/03/20 09/01/20 [Glucosamine Chondroitin Cap] Losartan/Hydrochlorothiazide 1 each PO DAILY 01/03/20 09/01/20 [Losartan-Hctz 50-12.5 mg Tab] Omeprazole 20 mg PO ONCE PRN 01/03/20 09/01/20 Oxymetazoline HCl [Afrin] 1 spray NS PRN PRN 01/03/20 09/01/20 Prazosin [Minipress] 1 mg PO QPM 01/03/20 09/01/20 predniSONE [Deltasone] 20 mg PO [id number] #21 tab 09/01/20 - Allergies Allergies/Adverse Reactions: Allergies Allergy/AdvReac Type Severity Reaction Status Date / Time No Known Drug Allergies Allergy Verified 09/01/20 16:17 - Social History Does the pt smoke?: No Smoking Status: Never smoker Does the pt drink ETOH?: Yes Does the pt have substance abuse?: No - Immunizations Immunizations are current?: Yes - POLST Patient has POLST: No PD ED PE NORMAL - Vitals Vital signs reviewed: Yes - General General: Alert and oriented X 3, No acute distress - HEENT HEENT: Moist mucous membranes - Neck Neck: Supple, no meningeal sign - Cardiac Cardiac: RRR - Respiratory Respiratory: No respiratory distress, Clear bilaterally - Derm Derm: Warm and dry - Extremities Extremities: Other (Mild swelling and erythema to the left knee. Tender palpation posterior aspect of the left knee. NVI) - Neuro Neuro: Alert and oriented X 3 Results - Vitals Vitals: Vital Signs - 24 hr 08/26/21 08/26/21 12:12 12:14 Temperature 36.8 C 36.5 C Heart Rate 107 H 106 H Respiratory 18 18 Rate Blood Pressure 150/67 H 143/78 H O2 Saturation 99 100 Oxygen O2 Source Room air - Rads (name of study) Duplex ultrasound left lower extremity Radiology: Final report received, EMP read contemporaneously, See rad report (No DVT. There is a hematoma posterior aspect of the knee) PD MEDICAL DECISION MAKING - ED course Complexity details: reviewed results, re-evaluated patient, considered differential, d/w patient ED course: Patient with mild postoperative swelling, appears to be a small hematoma. No evidence of abscess or septic joint. No fevers. Pain well controlled. No DVT on ultrasound. We will have him follow-up with his orthopedist for further care. Patient and family counseled regarding signs and symptoms for which I believe and urgent re-evaluation would be necessary. Patient with good understanding of and agreement to plan and is comfortable going home at this time This document was made in part using voice recognition software. While efforts are made to proofread this document, sound alike and grammatical errors may occur. Departure - Departure Disposition: 01 Home, Self Care Clinical Impression: Postoperative pain of left knee Condition: Good Instructions: ED Post Op Pain Follow-Up: MICK HERNANDEZ ARNP [Primary Care Provider] - Trey Andrea DO [Physician No Access] - Comments: Your ultrasound today does not show any evidence of a blood clot. You do appear to have a hematoma on the back of the knee, which is likely the swelling and warmth that you are feeling. There are no signs of infection. Continue your current medications at home and follow-up with Dr. Andrea for further care. Return if you worsen.
[2021-08-26] MEDS ORDERED: HYDROmorphone 1 MG/ML CARPUJECT IM STA (12:53)
[2021-08-26] MEDS ORDERED: hydrOXYzine PAMOATE 25 MG CAPSULE PO STA (12:53)
[2021-08-26 12:54] VITALS: BP 143/78
--- NOTE | 2021-08-26 14:05 | Ultrasound Report ---
PROCEDURE: Duplex Ext Veins Left INDICATIONS: LLE pain/swelling s/p L knee surgery TECHNIQUE: Real-time imaging, as well as color and pulse Doppler interrogation, were performed of the lower extr emity deep veins from the inguinal ligament to the popliteal fossa. COMPARISON: None. FINDINGS: The deep veins are normally compressible, and free of intraluminal thrombus. Color and pu lse Doppler demonstrate normal phasic intraluminal flow. There is normal augmentation response to di stal compression maneuver. Along the medial aspect of the left knee, there is a focal complex fluid collection without abnormal vascularity that measures 5.2 x 1 x 3 cm. IMPRESSION: No findings of deep venous thrombosis are seen. Likely soft tissue hematoma seen medially. Note: Concordant preliminary findings given by the mechanical applications engineer upon the completion of the examination to Dr. Olvera. Reviewed by: Dada Trotter MD on 08/26/2021 1:03 PM [facility] Approved by: Dada Trotter MD on 08/26/2021 1:03 PM [facility] Station ID: [id number]
== END 2021-08-26 14:16 | disposition home or self-care (01) ==
LOC: ED 12:06
DX: G89.18 Other acute postprocedural pain (principal); M25.562 Pain in left knee; I10 Essential (primary) hypertension; Z96.652 Presence of left artificial knee joint
CPT/HCPCS: 93971; 96372; 99282; 99284; J1170

== ENCOUNTER 2022-12-06 08:00 | Outpatient (CLI) | payer OTHER ==
[2022-12-06 07:01] LABS: ALBUMIN 3.9 g/dL (3.2-5.5); ALBUMIN/GLOBULIN RATIO 1.6 (1.0-2.2); ALKALINE PHOSPHATASE 66 IU/L (42-121); ALT ALANINE AMINOTRANSFERASE 32 IU/L (10-60); AST ASPARTATE AMINOTRANSFERASE 30 IU/L (10-42); BILIRUBIN,TOTAL 0.6 mg/dL (0.2-1.0); BUN - BLOOD UREA NITROGEN 13 mg/dL (6-20); CALCIUM 8.7 mg/dL (8.5-10.3); CARBON DIOXIDE - CO2 27 mmol/L (21-32); CHLORIDE 106 mmol/L (101-111); CHOL/HDL RATIO 2.6 (<5.0); CHOLESTEROL 143 mg/dL; CREATININE 0.9 mg/dL (0.6-1.3); GFR - MDRD 83 (>89); GLUCOSE 106 mg/dL (74-104); HDL CHOLESTEROL 54 mg/dL; LDL CHOLESTEROL,CALCULATED 70 mg/dL; LDL/HDL RATIO 1.3 (<3.6); POTASSIUM 3.9 mmol/L (3.5-4.5); SODIUM 140 mmol/L (135-145); TOTAL PROTEIN 6.3 g/dL (6.4-8.9); TRIGLYCERIDES 96 mg/dL (48-352); VLDL CHOLESTEROL 19 mg/dL
== END 2022-12-06 23:59 | disposition home or self-care (01) ==
LOC: LAB 08:00
PROVIDERS: ATTEND Nurse Practitioner Family
DX: I10 Essential (primary) hypertension (principal); E78.5 Hyperlipidemia, unspecified; Z12.5 Encounter for screening for malignant neoplasm of prostate
CPT/HCPCS: 36415; 80053; 80061; 83721; 84153